=== PATIENT | male | born 1980 | race Caucasian/White ===

== ENCOUNTER 2017-11-27 19:45 | Emergency (ER) | payer BC ==
[~2017-11-27] VITALS: Ht 193 cm; Wt 119.0 kg
[2017-11-27 19:50] VITALS: BP 163/89; Ht 193 cm; Wt 119.0 kg
== END 2017-11-27 22:31 | disposition left against medical advice (07) ==
LOC: ED 19:45
DX: Z53.21 Procedure and treatment not carried out due to patient leaving prior to being seen by health care provider (principal)